=== PATIENT | male | born 1955 | race Caucasian/White ===

== ENCOUNTER → 2016-10-13 | Outpatient (CLI) | payer OTHER | END | disposition home or self-care (01) | LOC: PCVCIMAG 08:10 | PROVIDERS: ATTEND Internal Medicine Cardiovascular Disease | DX: I87.2 Venous insufficiency (chronic) (peripheral) (principal); M79.605 Pain in left leg; M79.604 Pain in right leg; I25.10 Atherosclerotic heart disease of native coronary artery without angina pectoris | CPT/HCPCS: 93925; 93970 ==

== ENCOUNTER → 2016-12-05 | Outpatient (CLI) | payer OTHER ==
[~2016-12-05] MED LIST: ARNICA TOPICAL GEL 1.5OZ TUBE. TP ONE; CEPHALEXIN 250 MG CAPSULE. ONE; DIAZEPAM 10 MG TABLET. ONE; IV NORMAL SALINE 1000ML BAG 1,000 ML ONE; LIDOCAINE 1%/EPI 1:100,000 20 ML VIAL. ONE; SODIUM BICARBONATE 50 MEQ/50 ML VIAL. ONE
== END | disposition home or self-care (01) ==
LOC: PCVCINTER 07:19
PROVIDERS: ATTEND Nuclear Medicine Nuclear Cardiology
DX: I87.321 Chronic venous hypertension (idiopathic) with inflammation of right lower extremity (principal); I82.491 Acute embolism and thrombosis of other specified deep vein of right lower extremity; I87.2 Venous insufficiency (chronic) (peripheral); M79.89 Other specified soft tissue disorders
CPT/HCPCS: 36478; 37765; C1751; C1769; C1894; J3490; J7030